=== PATIENT | male | born 1990 | race Two or more races ===

== ENCOUNTER 2018-09-01 13:57 | Emergency (ER) | payer OTHER ==
[~2018-09-01] VITALS: Ht 167.6 cm; Wt 81.6 kg
[2018-09-01 14:16] VITALS: BP 122/76
--- NOTE | 2018-09-01 14:23 | Emergency Room Report ---
"History of Present Illness General Chief Complaint: Laceration Source: Patient Present Illness HPI 28-year-old male presents to the emergency department complaining of laceration sustained to the left index finger while at work using a knife. Patient reports pain is 10 in severity localized to the left index finger he reports bleeding has ceased at this time he states he is not sure when his last tetanus vaccination was but believes it was more than 10 years ago. Patient denies taking blood thinning medications he denies paresthesias. Patient states that he is right-hand dominant. palpation is an aggravating factor. rest provides relief. Allergies: Coded Allergies: No Known Allergies (Unverified , 09/01/18) Patient History Past Medical History: see triage record Past Surgical History: none Pertinent Family History: none Reviewed Nursing Documentation: PMH: Agreed; PSxH: Agreed Nursing Documentation-PMH Past Medical History: No Stated History Review of Systems All Other Systems: negative except mentioned in HPI Physical Exam Vital Signs Date Time Temp Pulse Resp B/P (MAP) Pulse Ox O2 Delivery O2 Flow Rate FiO2 09/01/18 14:09 97.5 58 19 125/81 98 Room Air Sp02 EP Interpretation: reviewed, normal General Appearance: no apparent distress, alert, GCS 15, non-toxic Head: normocephalic, atraumatic Eyes: bilateral eye normal inspection, bilateral eye PERRL ENT: hearing grossly normal, normal voice Neck: full range of motion Respiratory: lungs clear, normal breath sounds, speaking full sentences Cardiovascular #1: regular rate, rhythm Musculoskeletal: back normal, gait/station normal, normal range of motion, non- tender Neurologic: alert, oriented x3, responsive, motor strength/tone normal, sensory intact, speech normal, grossly normal Psychiatric: judgement/insight normal Skin: normal color, no rash, warm/dry, well hydrated, laceration - distal Left index finger laceration approx 1 cm in length. no nailbed involvement. Procedures Laceration/Wound Repair Laceration/Wound Repair : Consent: Verbal Wound Location: upper extremity - left index finger Wound's Depth, Shape: superficial Wound Length (cm): 1 Wound Explored: clean Irrigated w/ Saline (ccs): 500 Wound Repaired With: Dermabond Layer Closure?: No Sterile Dressing Applied?: No Splint Applied?: Yes Sling Applied?: No Patient Tolerated: Well Complications: None Medical Decision Making PA Attestation Dr. ewing is my supervising Physician whom patient management has been discussed with. Diagnostic Impression: Primary Impression: Laceration ER Course 28-year-old male presents to the emergency department complaining of laceration sustained to the left index finger while at work using a knife. Patient reports pain is 10 in severity localized to the left index finger he reports bleeding has ceased at this time he states he is not sure when his last tetanus vaccination was but believes it was more than 10 years ago. Patient denies taking blood thinning medications he denies paresthesias. Patient states that he is right-hand dominant. palpation is an aggravating factor. rest provides relief. Ddx considered but are not limited to laceration, tendon injury, cellulitis, amputation Vital signs: are WNL, pt. is afebrile H&PE are most consistent with: Left index finger laceration approx 1 cm in length ORDERS: none required at this time, the diagnosis is clinical ED INTERVENTIONS: -Tetanus vaccine was administered as pt. vaccination status was unknown. - The wound was copiously irrigated with normal saline, and explored for foreign body for which no FB was found. - The wound was approximated and closed using derma-sellers -sterile dressing is applied. -Right index finger Splint applied by mri ct tech. Pt. remains neurovascularly intact. Discussed with patient: That we make every effort to approximate the laceration as best as we can so that scarring will be as cosmetically pleasing as possible with our limited cosmetic skill set in the Emergency dept. Regardless of our best efforts there will be scarring after laceration repair. The extent of scarring is unknown at this time. DISCHARGE: At this time pt. is stable for d/c to home. Will provide printed patient care instructions, and any necessary prescriptions. Care plan and follow up instructions have been discussed with the patient prior to discharge. Last Vital Signs Date Time Temp Pulse Resp B/P (MAP) Pulse Ox O2 Delivery O2 Flow Rate FiO2 09/01/18 14:16 97.9 62 18 122/76 99 Room Air Status: improved Disposition: HOME, SELF-CARE Condition: Stable Scripts Bacitracin/Polymyxin B Sulfate (BACITRACIN-POLYMYXIN OINTMENT) 28.35 Gm Oint...g. 1 APPLIC TP BID, #28.3 GM Prov: Joann Mccartney 09/01/18 Cephalexin* (KEFLEX*) 500 Mg Capsule 500 MG ORAL EVERY 12 HOURS for 7 Days, #14 CAP 0 Refills Prov: Joann Mccartney 09/01/18 Departure Forms: Return to Work Return to Work Date: Sep 01, 2018 Work Restrictions: No Heavy Lifting Other Restrictions: limited use of left hand, keep dry. x 1 week. Return to Full Activity: Sep 08, 2018 Patient Instructions: Nonsutured Laceration Care Additional Instructions: Take medications as directed. Follow up with a Primary Care Provider in 3-5 days, even if your symptoms have resolved. --Please review list of primary care clinics, if you do not already have a primary care provider Return sooner to ED if new symptoms occur, or current symptoms become worse. - Please note that this Emergency Department Report was dictated using [employer] | [employer]payresident care provider technology software, occasionally this can lead to erroneous entry secondary to interpretation by the dictation equipment. Joann Mccartney Sep 01, 2018 14:23"
[2018-09-01] MEDS ORDERED: BACITRACIN-P28.35 GM TP (15:29)
[2018-09-01] MEDS ORDERED: CEPHALEXIN500 MG ORAL (15:29)
[2018-09-01] MEDS ORDERED: Tetanus/Diptheria/Pertussis IM ONE (15:30)
[2018-09-01 15:33] VITALS: BP 126/80
== END 2018-09-01 15:45 | disposition home or self-care (01) ==
LOC: EMR 14:10
DX: S61.211A Laceration without foreign body of left index finger without damage to nail, initial encounter (principal); W26.0XXA Contact with knife, initial encounter; Y92.9 Unspecified place or not applicable; Y99.0 Civilian activity done for income or pay; Z23 Encounter for immunization
CPT/HCPCS: 29130; 90471; 90715; 99283